=== PATIENT | female | born 1950 | race Two or more races ===

== ENCOUNTER 2019-01-09 11:19 | Inpatient (IN) | payer OTHER ==
[~2019-01-09] VITALS: Ht 154.9 cm; Wt 54.9 kg
[2019-01-09 12:18] LABS: BASOPHIL % 0.7 % (0-2); PLATELET COUNT 156 x10^3mcL (130-400)
[2019-01-09 12:19] LABS: RED CELL DISTRIBUTION WIDTH 17.8 % (11.5-14.5)
[2019-01-09 12:22] LABS: CALCIUM 8.9 mg/dL (8.5-10.1); CARBON DIOXIDE 30.1 mmol/L (21-32); CREATININE SERUM 2.5 mg/dL (0.6-1.0); POTASSIUM SERUM 4.3 mmol/L (3.5-5.1)
[2019-01-09 12:37] LABS: BILIRUBIN TOTAL 0.4 mg/dL (0.20-1.00); T4(THYROXINE) 7.3 ug/dL (4.7-13.3); TOTAL PROTEIN, SERUM 7.9 g/dL (6.4-8.2)
[2019-01-09 12:38] LABS: ALBUMIN 2.4 g/dL (3.4-5.0)
[2019-01-09 13:24] LABS: UA SPECIFIC GRAVITY 1.015 (1.005-1.035); microscopic required? YES; urine erythrocyte 2+ (NEGATIVE)
[2019-01-09] MEDS ORDERED: NORCO1 TA2 PO (13:46)
[2019-01-09] MEDS ORDERED: METOPROLOL SUCC25 M2 PO (13:46)
[2019-01-09] MEDS ORDERED: ZOF4 PO (13:47)
[2019-01-09 15:24] LABS: AMPHETAMINE QUAL UR NONE DETECTED (See below)
[2019-01-09 16:39] VITALS: BP 155/60
[2019-01-09 20:49] VITALS: BP 144/84
[2019-01-10 05:25] VITALS: BP 149/40
[2019-01-10 08:44] VITALS: BP 175/81
[2019-01-10 10:27] LABS: CALCIUM 8.9 mg/dL (8.5-10.1); CARBON DIOXIDE 28.2 mmol/L (21-32); CREATININE SERUM 3.3 mg/dL (0.6-1.0); POTASSIUM SERUM 5.3 mmol/L (3.5-5.1)
[2019-01-10 11:54] LABS: BASOPHIL % 0.8 % (0-2); PLATELET COUNT 143 x10^3mcL (130-400)
[2019-01-10 11:55] LABS: RED CELL DISTRIBUTION WIDTH 17.8 % (11.5-14.5)
[2019-01-10 13:14] VITALS: BP 163/77
[2019-01-10 17:24] VITALS: BP 147/51
[2019-01-10 20:50] VITALS: BP 144/72
[2019-01-11] VITALS (7 sets, daily range): BP systolic 107–183; BP diastolic 64–94; Ht 154.9 cm; Wt 54.9 kg
[2019-01-11 07:20] LABS: BASOPHIL % 0.8 % (0-2); PLATELET COUNT 157 x10^3mcL (130-400)
[2019-01-11 07:40] LABS: RED CELL DISTRIBUTION WIDTH 17.4 % (11.5-14.5)
[2019-01-11 07:44] LABS: CARBON DIOXIDE 26.4 mmol/L (21-32); CREATININE SERUM 3.9 mg/dL (0.6-1.0); POTASSIUM SERUM 5.5 mmol/L (3.5-5.1)
[2019-01-11] MEDS ORDERED: LEVAQUIN750 MG PO (16:19)
[2019-01-11] MEDS ORDERED: ANC1I IV (16:19)
== END 2019-01-11 20:40 | DRG 73 ==
LOC: EDBD 11:19 → ED 11:19 → DU 14:09
PROVIDERS: Emergency Medicine; ADMIT General Practice
DX: G90.8 Other disorders of autonomic nervous system (principal); N18.6 End stage renal disease; N17.0 Acute kidney failure with tubular necrosis; E43 Unspecified severe protein-calorie malnutrition; I12.0 Hypertensive chronic kidney disease with stage 5 chronic kidney disease or end stage renal disease; N39.0 Urinary tract infection, site not specified; N17.9 Acute kidney failure, unspecified; E11.22 Type 2 diabetes mellitus with diabetic chronic kidney disease; E11.65 Type 2 diabetes mellitus with hyperglycemia; E87.5 Hyperkalemia; M06.9 Rheumatoid arthritis, unspecified; E78.00 Pure hypercholesterolemia, unspecified; Z99.3 Dependence on wheelchair; Z99.2 Dependence on renal dialysis; Z68.25 Body mass index [BMI] 25.0-25.9, adult
CPT/HCPCS: 82962; 97110-GP; 97530-GP; J1956; J2405; J7030; Q0092